=== PATIENT | female | born 1970 | race Hispanic/Latino ===

== ENCOUNTER 2018-02-23 10:07 | Emergency (ER) | payer MEDICAID ==
[2018-02-23 11:10] VITALS: BP 115/75
--- NOTE | 2018-02-23 13:02 | Emergency Department Report ---
ED Lower Extremity HPI - General Chief Complaint: Extremity Injury, Lower Stated Complaint: FOOT AND ANKLE PAIN Time Seen by Provider: 02/23/18 12:41 Source: patient Mode of arrival: Wheelchair Limitations: No Limitations - History of Present Illness Initial Comments: This is a 47-year-old female who presents with right ankle and foot pain from a fall yesterday. Patient states she was kneeling down and lost balance yesterday around 1900 and failed to right side of body. Patient states she is not sure if she twisted ankle. Patient states pain is worse in the lateral side of right foot and worse with weightbearing. Patient states she is unable to move right ankle and foot. Patient reports pain is 10 out of 10 on pain scale. Patient states she took Tylenol and apply ice to right lower extremity to improve swelling with no improvement of symptoms. Patient denies numbness or tingling, deformity, fever, loss of consciousness, and warmth. MD Complaint: ankle injury (right), foot injury (right) Onset/Timin -: days(s) Injury: Ankle: Right, Foot: Right Type of Injury: unknown Place: home Severity: severe Severity scale (0 -10): 10 Improves With: NSAID, cold therapy Worsens With: weight bearing, movement, palpation Context: fall Associated Symptoms: snap/pop sensation, swelling, unable to bear weight. denies: numbness, tingling, able to partially bear weight, ambulatory Treatments Prior to Arrival: cold therapy, NSAIDS - Related Data Home Medications Medication Instructions Recorded Confirmed Last Taken Acetaminophen [Tylenol] 650 mg PO Q4HR PRN 08/13/13 08/13/13 Unknown Haloperidol Lactate [Haldol] 5 mg IM Q4HR PRN 08/13/13 08/13/13 Unknown Haloperidol [Haldol] 5 mg PO Q4HR PRN 08/13/13 08/13/13 Unknown LORazepam [Ativan] 1 mg IM Q4HR PRN 08/13/13 08/13/13 Unknown LORazepam [Ativan] 1 mg PO Q4HR PRN 08/13/13 08/13/13 Unknown Mag Hydrox/Aluminum Hyd/Simeth 30 ml PO Q2HR PRN 08/13/13 08/13/13 Unknown [Maalox Advanced Suspension] Magnesium Hydroxide [Milk of 30 ml PO Q12HR PRN 08/13/13 08/13/13 Unknown Magnesia] diphenhydrAMINE [Benadryl] 50 mg IM Q4HR PRN 08/13/13 08/13/13 Unknown diphenhydrAMINE [Benadryl] 50 mg PO Q4HR PRN 08/13/13 08/13/13 Unknown Previous Rx's Medication Instructions Recorded Last Taken Type traMADol [Ultram 50 MG tab] 50 mg PO Q6HR PRN #15 tablet 02/23/18 Unknown Rx Allergies Allergy/AdvReac Type Severity Reaction Status Date / Time codeine Allergy Unknown Verified 08/13/13 01:20 ibuprofen [From Motrin] Allergy Unknown Verified 08/13/13 01:20 ED Review of Systems ROS: Stated complaint: FOOT AND ANKLE PAIN Other details as noted in HPI Constitutional: denies: chills, fever Respiratory: denies: cough, shortness of breath, wheezing Cardiovascular: denies: chest pain, palpitations Gastrointestinal: denies: abdominal pain, nausea, diarrhea Musculoskeletal: joint swelling (right ankle), arthralgia (right ankle and foot) Skin: denies: rash, lesions Neurological: denies: headache, weakness, paresthesias Psychiatric: denies: anxiety, depression ED Past Medical Hx - Past Medical History Previous Medical History?: Yes Hx Psychiatric Treatment: Yes Additional medical history: bipolar, depression, ptsd, history of suicidal ideation - Surgical History Past Surgical History?: Yes Additional Surgical History: bilateral hip replacement 2009. hysterecomty - Social History Smoking Status: Former Smoker Substance Use Type: None - Medications Home Medications: Home Medications Medication Instructions Recorded Confirmed Last Taken Type Acetaminophen [Tylenol] 650 mg PO Q4HR PRN 08/13/13 08/13/13 Unknown History Haloperidol Lactate [Haldol] 5 mg IM Q4HR PRN 08/13/13 08/13/13 Unknown History Haloperidol [Haldol] 5 mg PO Q4HR PRN 08/13/13 08/13/13 Unknown History LORazepam [Ativan] 1 mg IM Q4HR PRN 08/13/13 08/13/13 Unknown History LORazepam [Ativan] 1 mg PO Q4HR PRN 08/13/13 08/13/13 Unknown History Mag Hydrox/Aluminum Hyd/Simeth 30 ml PO Q2HR PRN 08/13/13 08/13/13 Unknown History [Maalox Advanced Suspension] Magnesium Hydroxide [Milk of 30 ml PO Q12HR PRN 08/13/13 08/13/13 Unknown History Magnesia] diphenhydrAMINE [Benadryl] 50 mg IM Q4HR PRN 08/13/13 08/13/13 Unknown History diphenhydrAMINE [Benadryl] 50 mg PO Q4HR PRN 08/13/13 08/13/13 Unknown History traMADol [Ultram 50 MG tab] 50 mg PO Q6HR PRN #15 tablet 02/23/18 Unknown Rx ED Physical Exam - General Limitations: No Limitations General appearance: alert, in no apparent distress - Respiratory Respiratory exam: Present: normal lung sounds bilaterally. Absent: respiratory distress - Cardiovascular Cardiovascular Exam: Present: regular rate, normal rhythm. Absent: systolic murmur, diastolic murmur, rubs, gallop - GI/Abdominal GI/Abdominal exam: Present: soft, normal bowel sounds. Absent: organomegaly, mass - Expanded Lower Extremity Exam Right Hip exam: Present: normal inspection, full ROM Upper Leg exam: Present: normal inspection, full ROM Knee exam: Present: normal inspection, full ROM Lower Leg exam: Present: normal inspection, full ROM Ankle exam: Present: tenderness (above lateral malleolus), swelling. Absent: full ROM (limited secondary pain), abrasion, laceration, ecchymosis, deformity, crepidus, dislocation, erythema, anterior draw sign Foot/Toe exam: Present: tenderness (third through fifth metatarsal bones). Absent: full ROM (limited secondary pain, unable to tolerate ROM), abrasion, laceration, ecchymosis, deformity, amputation, puncture wound, calcaneal tenderness, tenderness at base of 5th metatarsal, subungual hematoma Neuro vascular tendon exam: Present: no vascular compromise Gait: Positive: unable to bear weight - Neurological Exam Neurological exam: Present: alert, oriented X3 - Psychiatric Psychiatric exam: Present: normal affect, normal mood - Skin Skin exam: Present: warm, dry, intact, normal color. Absent: rash ED Course Vital Signs 02/23/18 02/23/18 11:07 13:45 Temperature 97.5 F L Pulse Rate 74 Respiratory 18 18 Rate Blood Pressure 115/75 O2 Sat by Pulse 97 Oximetry ED Lower Extremity MDM - Radiology Data Radiology results: report reviewed, image reviewed FINAL REPORT EXAM: XR ANKLE 3+V RT HISTORY: pain/swelling after fall COMPARISON: None. TECHNIQUE: Two views of the right ankle FINDINGS: There is normal alignment without acute fracture or dislocation. The ankle mortise is intact. There is mild medial soft tissue swelling. IMPRESSION: No acute bony abnormality of the right ankle. Mild medial soft tissue swelling. XR foot 3+V RT Impression: No acute bony abnormality of the right foot. - Medical Decision Making This is a 47 y.o. female presents with right ankle and foot pain status post fall yesterday. Patient was examined by me. Vitals are normal and patient is in no acute distress. Patient given Kane once while in ER. Obtained a urinalysis and x-rays of her right ankle and foot. X-rays dictated by radiologist and report some scans reviewed by myself. No acute bony abnormality of the right ankle. Mild medial soft tissue swelling. No acute bony abnormality of the right foot. Patient informed of results. Sukh wrap applied to right ankle and foot. Patient given crutches with education. Instructed to progress weightbearing as tolerated. Start tramadol for pain and RICE for sprain. According to [facility] patient haven't filled prescriptions in the past year. Plan discussed with patient to discharge home and treat outpatient. She agrees with ER plan. Patient discharged home in stable condition. Follow up with PCP in 2-3 days. Referrals to orthopedic surgeon if symptoms are not improving as discussed. Critical care attestation.: If time is entered above; I have spent that time in minutes in the direct care of this critically ill patient, excluding procedure time. ED Disposition Clinical Impression: Right foot pain Right ankle pain Qualifiers: Chronicity: acute Qualified Code(s): M25.571 - Pain in right ankle and joints of right foot Sprain of right ankle Qualifiers: Encounter type: initial encounter Involved ligament of ankle: unspecified ligament Qualified Code(s): S93.401A - Sprain of unspecified ligament of right ankle, initial encounter Disposition: TO HOME OR SELFCARE Is pt being admited?: No Does the pt Need Aspirin: No Condition: Stable Instructions: Ankle Sprain (ED), Ankle Exercises (GEN) Additional Instructions: Rest Use ice or heat on affected area for 20 minutes and off for 2 hours. Take pain medication as needed for pain. Follow up with Primary Care Provider in 2-3 days. Prescriptions: traMADol [Ultram 50 MG tab] 50 mg PO Q6HR PRN #15 tablet PRN Reason: Pain Referrals: MARGUERITE BIGGS MD [Staff Physician] - 3-5 Days [facility] [Outside] - 3-5 Days [facility] [Outside] - 3-5 Days Time of Disposition: 13:35 Print Language: WELSH
[2018-02-23] MEDS ORDERED: NORCO 5/325 PO ONE (13:07)
--- NOTE | 2018-02-23 13:17 | XRay Report ---
FINAL REPORT EXAM: XR ANKLE 3+V RT HISTORY: pain/swelling after fall COMPARISON: None. TECHNIQUE: Two views of the right ankle FINDINGS: There is normal alignment without acute fracture or dislocation. The ankle mortise is intact. There is mild medial soft tissue swelling. IMPRESSION: No acute bony abnormality of the right ankle. Mild medial soft tissue swelling.
--- NOTE | 2018-02-23 13:17 | XRay Report ---
FINAL REPORT EXAM: XR FOOT 3+V RT HISTORY: pain/swelling after fall COMPARISON: None. TECHNIQUE: Two views of the right foot FINDINGS: There is normal alignment without acute fracture or dislocation. The joint spaces are preserved. The overlying soft tissues are intact. IMPRESSION: No acute bony abnormality of the right foot.
== END 2018-02-23 14:10 | disposition home or self-care (01) ==
LOC: ED 10:07
DX: S93.401A Sprain of unspecified ligament of right ankle, initial encounter (principal); F31.9 Bipolar disorder, unspecified; F43.10 Post-traumatic stress disorder, unspecified; Z96.643 Presence of artificial hip joint, bilateral; Z90.710 Acquired absence of both cervix and uterus; Z88.5 Allergy status to narcotic agent; Z87.891 Personal history of nicotine dependence; W17.89XA Other fall from one level to another, initial encounter; Y93.89 Activity, other specified; Y92.89 Other specified places as the place of occurrence of the external cause; Y99.8 Other external cause status

== ENCOUNTER 2018-10-02 11:53 | Emergency (ER) | payer MEDICAID ==
[2018-10-02 12:02] VITALS: BP 127/85
--- NOTE | 2018-10-02 12:03 | Emergency Department Report ---
Blank Doc - Documentation Documentation: this is a 48-year-old female that presents with right knee pain. Denies any i njuries. This initial assessment/diagnostic orders/clinical plan/treatment(s) is/are subject to change based on patient's health status, clinical progression and re- assessment by fellow clinical providers in the ED. Further treatment and workup at subsequent clinical providers discretion. Patient/guardians urged not to elope from the ED as their condition may be serious if not clinically assessed and managed. Initial orders include: 1- Patient sent to [facility] for further evaluation and treatment 2- xray
--- NOTE | 2018-10-02 13:11 | XRay Report ---
RIGHT KNEE, 3 views: History: Right knee pain. The bony architecture is intact without evidence of fracture or dislocation. A small to medium joint effusion is suspected on the lateral image. IMPRESSION: Joint effusion. No osseous abnormality identified.
--- NOTE | 2018-10-02 14:11 | Emergency Department Report ---
ED Lower Extremity HPI - General Chief Complaint: Extremity Injury, Lower Stated Complaint: TWISTED RT KNEE Time Seen by Provider: 10/02/18 12:01 Source: patient Mode of arrival: Ambulatory Limitations: No Limitations - History of Present Illness Initial Comments: Patient is a 48-year-old female presents to the ED complaining of right knee pain for the past 2 days. Patient states that she was walking her dogs and she feels that she may have twisted her knee. She is also some swelling to the right aspect of the right knee. Patient states that she noticed some swelling is painful to touch. Patient denies dysuria gallop, fall or trauma to the knee. MD Complaint: knee injury (knee pain) - Related Data Home Medications Medication Instructions Recorded Confirmed Last Taken Acetaminophen [Tylenol] 650 mg PO Q4HR PRN 08/13/13 08/13/13 Unknown Haloperidol Lactate [Haldol] 5 mg IM Q4HR PRN 08/13/13 08/13/13 Unknown Haloperidol [Haldol] 5 mg PO Q4HR PRN 08/13/13 08/13/13 Unknown LORazepam [Ativan] 1 mg IM Q4HR PRN 08/13/13 08/13/13 Unknown LORazepam [Ativan] 1 mg PO Q4HR PRN 08/13/13 08/13/13 Unknown Mag Hydrox/Aluminum Hyd/Simeth 30 ml PO Q2HR PRN 08/13/13 08/13/13 Unknown [Maalox Advanced Suspension] Magnesium Hydroxide [Milk of 30 ml PO Q12HR PRN 08/13/13 08/13/13 Unknown Magnesia] diphenhydrAMINE [Benadryl] 50 mg IM Q4HR PRN 08/13/13 08/13/13 Unknown diphenhydrAMINE [Benadryl] 50 mg PO Q4HR PRN 08/13/13 08/13/13 Unknown Previous Rx's Medication Instructions Recorded Last Taken Type traMADol [Ultram 50 MG tab] 50 mg PO Q6HR PRN #15 tablet 02/23/18 Unknown Rx Acetaminophen [Tylenol Arthritis] 650 mg PO TID #30 tablet.er 10/02/18 Unknown Rx Cyclobenzaprine [Flexeril 10 MG 10 mg PO QHS #20 tablet 10/02/18 Unknown Rx TAB] Allergies Allergy/AdvReac Type Severity Reaction Status Date / Time codeine Allergy Unknown Verified 08/13/13 01:20 ibuprofen [From Motrin] Allergy Unknown Verified 08/13/13 01:20 ED Review of Systems ROS: Stated complaint: TWISTED RT KNEE Other details as noted in HPI Comment: All other systems reviewed and negative ED Past Medical Hx - Past Medical History Previous Medical History?: Yes Hx Psychiatric Treatment: Yes Additional medical history: bipolar, depression, ptsd, history of suicidal ideation - Surgical History Past Surgical History?: Yes Additional Surgical History: bilateral hip replacement 2009. hysterecomty - Social History Smoking Status: Never Smoker Substance Use Type: None - Medications Home Medications: Home Medications Medication Instructions Recorded Confirmed Last Taken Type Acetaminophen [Tylenol] 650 mg PO Q4HR PRN 08/13/13 08/13/13 Unknown History Haloperidol Lactate [Haldol] 5 mg IM Q4HR PRN 08/13/13 08/13/13 Unknown History Haloperidol [Haldol] 5 mg PO Q4HR PRN 08/13/13 08/13/13 Unknown History LORazepam [Ativan] 1 mg IM Q4HR PRN 08/13/13 08/13/13 Unknown History LORazepam [Ativan] 1 mg PO Q4HR PRN 08/13/13 08/13/13 Unknown History Mag Hydrox/Aluminum Hyd/Simeth 30 ml PO Q2HR PRN 08/13/13 08/13/13 Unknown History [Maalox Advanced Suspension] Magnesium Hydroxide [Milk of 30 ml PO Q12HR PRN 08/13/13 08/13/13 Unknown History Magnesia] diphenhydrAMINE [Benadryl] 50 mg IM Q4HR PRN 08/13/13 08/13/13 Unknown History diphenhydrAMINE [Benadryl] 50 mg PO Q4HR PRN 08/13/13 08/13/13 Unknown History traMADol [Ultram 50 MG tab] 50 mg PO Q6HR PRN #15 tablet 02/23/18 Unknown Rx Acetaminophen [Tylenol Arthritis] 650 mg PO TID #30 tablet.er 10/02/18 Unknown Rx Cyclobenzaprine [Flexeril 10 MG 10 mg PO QHS #20 tablet 10/02/18 Unknown Rx TAB] ED Physical Exam - General Limitations: No Limitations General appearance: alert, in no apparent distress - Head Head exam: Present: atraumatic, normocephalic - Eye Eye exam: Present: normal appearance - ENT ENT exam: Present: mucous membranes moist - Neck Neck exam: Present: normal inspection - Respiratory Respiratory exam: Present: normal lung sounds bilaterally. Absent: respiratory distress - Cardiovascular Cardiovascular Exam: Present: regular rate, normal rhythm. Absent: systolic murmur, diastolic murmur, rubs, gallop - GI/Abdominal GI/Abdominal exam: Present: soft, normal bowel sounds - Extremities Exam Extremities exam: Present: normal inspection - Expanded Lower Extremity Exam Right Hip exam: Present: normal inspection, full ROM Upper Leg exam: Present: normal inspection, full ROM Knee exam: Present: normal inspection, full ROM, tenderness (palpation of the right knee), swelling (mild swelling noted). Absent: abrasion, laceration, ecchymosis, deformity Lower Leg exam: Present: normal inspection, full ROM. Absent: tenderness, swelling Ankle exam: Present: normal inspection, full ROM Foot/Toe exam: Present: normal inspection, full ROM Neuro vascular tendon exam: Present: no vascular compromise - Back Exam Back exam: Present: normal inspection - Neurological Exam Neurological exam: Present: alert, oriented X3 - Psychiatric Psychiatric exam: Present: normal affect, normal mood - Skin Skin exam: Present: warm, dry, intact, normal color. Absent: rash ED Course Vital Signs 10/02/18 12:01 Temperature 98.1 F Pulse Rate 81 Respiratory 16 Rate Blood Pressure 127/85 O2 Sat by Pulse 97 Oximetry ED Lower Extremity MDM - Radiology Data Radiology results: report reviewed, image reviewed Fluoro Time In Minutes: RIGHT KNEE, 3 views: History: Right knee pain. The bony architecture is intact without evidence of fracture or dislocation. A small to medium joint effusion is suspected on the lateral image. IMPRESSION: Joint effusion. No osseous abnormality identified. Transcribed By: TTR Dictated By: JANET SIMMONS JR, MD Electronically Authenticated By: JANET SIMMONS JR, MD Signed Date/Time: 10/02/18 0780 - Medical Decision Making 48-year-old female presents with a knee arthralgia/sprain. X-ray shows no acute findings. This patient was put in a knee immobilizer and sent home with pain medication Discussed the patient to follow up with the primary care physician. Critical care attestation.: If time is entered above; I have spent that time in minutes in the direct care of this critically ill patient, excluding procedure time. ED Disposition Clinical Impression: Arthralgia of right knee, Knee pain Disposition: TO HOME OR SELFCARE Is pt being admited?: No Does the pt Need Aspirin: No Condition: Stable Instructions: Arthralgia (ED) Additional Instructions: Make sure to follow up with the primary care physician as discussed. Take all your medications as you've been prescribed. If you have any worsening symptoms or develop new symptoms please return to ED immediately. Prescriptions: Cyclobenzaprine [Flexeril 10 MG TAB] 10 mg PO QHS #20 tablet Acetaminophen [Tylenol Arthritis] 650 mg PO TID #30 tablet.er Referrals: VIDHI NGUYỄN MD [Primary Care Provider] - 3-5 Days Forms: Work/School Release Form(ED) Time of Disposition: 15:10
[2018-10-02] MEDS ORDERED: TORADOL IM ONE (14:43)
[2018-10-02] MEDS ORDERED: FLEXERIL PO ONE (14:43)
== END 2018-10-02 15:38 | disposition home or self-care (01) ==
LOC: ED 11:53
DX: M25.561 Pain in right knee (principal); Z88.5 Allergy status to narcotic agent; Z88.6 Allergy status to analgesic agent; X50.9XXA Other and unspecified overexertion or strenuous movements or postures, initial encounter; Y93.89 Activity, other specified; Y92.89 Other specified places as the place of occurrence of the external cause; Y99.8 Other external cause status
CPT/HCPCS: 29505; 73562; 96372; 99283; J1885

== ENCOUNTER 2019-08-14 16:32 | Emergency (ER) | payer MEDICAID ==
[2019-08-14 18:49] VITALS: BP 122/82
[2019-08-14] MEDS ORDERED: dexAMETHasone 20 MG/5 ML VIAL IM ONE (20:27)
[2019-08-14] MEDS ORDERED: ONDANSETRON 4 MG ODT TAB PO ONE (20:27)
[2019-08-14] MEDS ORDERED: oxyCODONE /ACETAMINOPHEN 5-325MG TAB PO ONE (20:27)
--- NOTE | 2019-08-14 21:42 | Emergency Department Report ---
ED Back Pain/Injury HPI - General Chief Complaint: Back Pain/Injury Stated Complaint: HURT FROM WAIST DOWN Source: patient Limitations: No Limitations - History of Present Illness Initial Comments: Patient is a 49-year-old white female with a history of chronic low back pain and sciatica, chronic osteoarthritis, bipolar disorder, chronic anxiety and depression who presents to the ED with complaint of acute exacerbation of her chronic low back pain that radiates to her lower extremities worse on the left leg for the last 1 week, was in the last 2 days. Patient also complains of severe left knee pain from a fall she suffered 2 weeks ago. Patient denies dizziness, nausea, vomiting, chest pain, shortness of breath, hematuria, dysuria, urinary frequency and urgency, numbness and tingling or weakness of lower extremities bilaterally. MD Complaint: back pain, other (muscle spasm of back; severe left knee pain) -: Sudden, week(s) (1) Similar Symptoms Previously: Yes (chronic sciatica; chronic osteoarthritis) Place: home Radiation: left leg Severity: severe Severity scale (0 -10): 8 Quality: sharp, aching Consistency: constant Improves With: none Worsens With: movement, walking Context: fall Associated Symptoms: denies other symptoms, difficulty walking. denies: con fusion, weakness, chest pain, numbness, cough, difficulty urinating, diaphoresis, abdominal pain, loss of appetite, nausea/vomiting, rash, seizure, syncope - Related Data Home Medications Medication Instructions Recorded Confirmed Last Taken Acetaminophen [Tylenol] 650 mg PO Q4HR PRN 08/13/13 08/13/13 Unknown Haloperidol Lactate [Haldol] 5 mg IM Q4HR PRN 08/13/13 08/13/13 Unknown LORazepam [Ativan] 1 mg IM Q4HR PRN 08/13/13 08/13/13 Unknown LORazepam [Ativan] 1 mg PO Q4HR PRN 08/13/13 08/13/13 Unknown Mag Hydrox/Aluminum Hyd/Simeth 30 ml PO Q2HR PRN 08/13/13 08/13/13 Unknown [Maalox Advanced Suspension] Magnesium Hydroxide [Milk of 30 ml PO Q12HR PRN 08/13/13 08/13/13 Unknown Magnesia] diphenhydrAMINE [Benadryl] 50 mg IM Q4HR PRN 08/13/13 08/13/13 Unknown diphenhydrAMINE [Benadryl] 50 mg PO Q4HR PRN 08/13/13 08/13/13 Unknown haloperidoL [Haldol] 5 mg PO Q4HR PRN 08/13/13 08/13/13 Unknown Previous Rx's Medication Instructions Recorded Last Taken Type traMADoL [Ultram 50 MG tab] 50 mg PO Q6HR PRN #15 tablet 02/23/18 Unknown Rx Acetaminophen [Tylenol Arthritis] 650 mg PO TID #30 tablet.er 10/02/18 Unknown Rx Cyclobenzaprine [Flexeril 10 MG 10 mg PO QHS #20 tablet 10/02/18 Unknown Rx TAB] methOCARBAMOL [Robaxin TAB] 750 mg PO Q8H PRN #21 tablet 08/14/19 Unknown Rx predniSONE [Deltasone] 60 mg PO QDAY #15 tab 08/14/19 Unknown Rx traMADoL [Ultram] 50 mg PO Q6HR PRN #12 tablet 08/14/19 Unknown Rx Allergies Allergy/AdvReac Type Severity Reaction Status Date / Time aspirin Allergy Unknown Verified 08/14/19 16:35 codeine Allergy Unknown Verified 08/14/19 16:34 ibuprofen [From Motrin] Allergy Unknown Verified 08/14/19 16:34 ED Review of Systems ROS: Stated complaint: HURT FROM WAIST DOWN Other details as noted in HPI Constitutional: denies: chills, fever Eyes: denies: eye pain, eye discharge, vision change ENT: denies: ear pain, throat pain Respiratory: denies: cough, shortness of breath, wheezing Cardiovascular: denies: chest pain, palpitations Endocrine: no symptoms reported Gastrointestinal: denies: abdominal pain, nausea, diarrhea Genitourinary: denies: urgency, dysuria, discharge Musculoskeletal: back pain, arthralgia (left knee pain), myalgia. denies: joint swelling Skin: denies: rash, lesions Neurological: denies: headache, weakness, paresthesias Psychiatric: denies: anxiety, depression Hematological/Lymphatic: denies: easy bleeding, easy bruising ED Past Medical Hx - Past Medical History Hx Psychiatric Treatment: Yes Additional medical history: bipolar, depression, ptsd, history of suicidal ideation - Surgical History Additional Surgical History: bilateral hip replacement 2009. hysterecomty - Social History Smoking Status: Unknown if ever smoked - Medications Home Medications: Home Medications Medication Instructions Recorded Confirmed Last Taken Type Acetaminophen [Tylenol] 650 mg PO Q4HR PRN 08/13/13 08/13/13 Unknown History Haloperidol Lactate [Haldol] 5 mg IM Q4HR PRN 08/13/13 08/13/13 Unknown History LORazepam [Ativan] 1 mg IM Q4HR PRN 08/13/13 08/13/13 Unknown History LORazepam [Ativan] 1 mg PO Q4HR PRN 08/13/13 08/13/13 Unknown History Mag Hydrox/Aluminum Hyd/Simeth 30 ml PO Q2HR PRN 08/13/13 08/13/13 Unknown History [Maalox Advanced Suspension] Magnesium Hydroxide [Milk of 30 ml PO Q12HR PRN 08/13/13 08/13/13 Unknown History Magnesia] diphenhydrAMINE [Benadryl] 50 mg IM Q4HR PRN 08/13/13 08/13/13 Unknown History diphenhydrAMINE [Benadryl] 50 mg PO Q4HR PRN 08/13/13 08/13/13 Unknown History haloperidoL [Haldol] 5 mg PO Q4HR PRN 08/13/13 08/13/13 Unknown History traMADoL [Ultram 50 MG tab] 50 mg PO Q6HR PRN #15 tablet 02/23/18 Unknown Rx Acetaminophen [Tylenol Arthritis] 650 mg PO TID #30 tablet.er 10/02/18 Unknown Rx Cyclobenzaprine [Flexeril 10 MG 10 mg PO QHS #20 tablet 10/02/18 Unknown Rx TAB] methOCARBAMOL [Robaxin TAB] 750 mg PO Q8H PRN #21 tablet 08/14/19 Unknown Rx predniSONE [Deltasone] 60 mg PO QDAY #15 tab 08/14/19 Unknown Rx traMADoL [Ultram] 50 mg PO Q6HR PRN #12 tablet 08/14/19 Unknown Rx ED Physical Exam - General Limitations: No Limitations General appearance: alert, in no apparent distress - Head Head exam: Present: atraumatic, normocephalic, normal inspection - Eye Eye exam: Present: normal appearance, PERRL, EOMI - ENT ENT exam: Present: normal exam, normal orophraynx, mucous membranes moist, TM's normal bilaterally, normal external ear exam - Neck Neck exam: Present: normal inspection, full ROM - Respiratory Respiratory exam: Present: normal lung sounds bilaterally. Absent: respiratory distress, wheezes, rales, rhonchi, chest wall tenderness, accessory muscle use - Cardiovascular Cardiovascular Exam: Present: regular rate, normal rhythm, normal heart sounds. Absent: systolic murmur, diastolic murmur, rubs, gallop - GI/Abdominal GI/Abdominal exam: Present: soft, normal bowel sounds. Absent: distended, tenderness, hyperactive bowel sounds, hypoactive bowel sounds, organomegaly - Extremities Exam Extremities exam: Present: normal inspection, full ROM, tenderness (palpable left knee tenderness), normal capillary refill. Absent: pedal edema, joint swelling, calf tenderness - Back Exam Back exam: Present: normal inspection, full ROM, tenderness (palpable lumbosacral paraspinal musculoskeletal tenderness ), muscle spasm, paraspinal tenderness - Neurological Exam Neurological exam: Present: alert, oriented X3, CN II-XII intact, normal gait, reflexes normal - Psychiatric Psychiatric exam: Present: normal affect, normal mood - Skin Skin exam: Present: warm, dry, intact, normal color. Absent: rash ED Course Vital Signs 08/14/19 08/14/19 08/14/19 16:55 20:45 21:53 Temperature 97.7 F Pulse Rate 76 74 Respiratory 18 18 17 Rate Blood Pressure 122/82 [Right] O2 Sat by Pulse 95 97 Oximetry ED Medical Decision Making - Medical Decision Making This is a 49-year-old female with a history of chronic low back pain and sciatica presented to the ED with worsening low back pain that radiates to the lower extremities with numbness and tingling sensation on left foot with worsening left knee pain for one week, worse in the last 2 days. In the ED, patient is alert and oriented 3 and is not in any distress but appears to be in pain, crying during the physical exam. Patient was treated for pain ED and discharged home on pain medications and advised to follow-up with her primary care physician in 5-7 days for reevaluation. Patient is advised to consider having her primary care physician referral Hospital patient clinic to control her chronic pain. Patient was advised that they chronic pain is not managed in the ED but at the pain clinic. Patient verbalized and acknowledged the advice. - Differential Diagnosis muscle spasm; chronic back pain; osteoarthritis; muscle strain Critical care attestation.: If time is entered above; I have spent that time in minutes in the direct care of this critically ill patient, excluding procedure time. ED Disposition Clinical Impression: Spasm of muscle of lower back, Acute exacerbation of chronic low back pain, Chronic osteoarthritis Strain of lumbar paraspinal muscle Qualifiers: Encounter type: initial encounter Qualified Code(s): S39.012A - Strain of muscle, fascia and tendon of lower back, initial encounter Disposition: TO HOME OR SELFCARE Is pt being admited?: No Does the pt Need Aspirin: No Condition: Stable Instructions: Muscle Strain (ED), Osteoarthritis (ED), Lumbar Radiculopathy (ED), Chronic Back Pain (ED) Additional Instructions: Take medications with food, drink plenty of fluids and follow up with your primary care physician in 5-7 days for reevaluation. Return to the ED immediately if symptoms get worse. Note that the pain is not treated in the ED but in the pain clinic. Please consider follow-up with your primary care doctor for referral to a pain clinic to manage your chronic pain. Prescriptions: predniSONE [Deltasone] 60 mg PO QDAY #15 tab methOCARBAMOL [Robaxin TAB] 750 mg PO Q8H PRN #21 tablet PRN Reason: Muscle Spasm traMADoL [Ultram] 50 mg PO Q6HR PRN #12 tablet PRN Reason: Pain Referrals: [facility] [Outside] - 3-5 Days Forms: Accompanied Note, Work/School Release Form(ED) Time of Disposition: 21:43 Print Language: FAROESE
== END 2019-08-14 21:53 | disposition home or self-care (01) ==
LOC: ED 16:32
DX: S39.012A Strain of muscle, fascia and tendon of lower back, initial encounter (principal); M62.830 Muscle spasm of back; M19.90 Unspecified osteoarthritis, unspecified site; F31.9 Bipolar disorder, unspecified; Z90.710 Acquired absence of both cervix and uterus; Z79.899 Other long term (current) drug therapy; Z88.6 Allergy status to analgesic agent; Z88.4 Allergy status to anesthetic agent; Z88.8 Allergy status to other drugs, medicaments and biological substances; X58.XXXA Exposure to other specified factors, initial encounter; Y93.89 Activity, other specified; Y92.89 Other specified places as the place of occurrence of the external cause; Y99.8 Other external cause status
CPT/HCPCS: 96372; 99282; J1100; Q0162